=== PATIENT | male | born 1980 | race Caucasian/White ===

== ENCOUNTER 2020-05-24 22:02 | Emergency (ER) | payer SELFPAY ==
[~2020-05-24] VITALS: Ht 175.3 cm; Wt 72.6 kg
[2020-05-24] MEDS ORDERED: NEOMY/BACITR/POLYMYXIN OINT PACKET. TP ONE (22:27)
[2020-05-24] MEDS ORDERED: LIDOCAINE 2% 20 ML VIAL. IJ ONE (22:30)
[2020-05-24] MEDS ORDERED: DIPH,PERTUSS(ACELL),TET VAC/PF 0.5 ML SYRINGE. VAX IM ONE (22:30)
--- NOTE | 2020-05-24 22:42 | PHYS DOC ---
Past History Past Medical History: No Pertinent History Past Surgical History: No Surgical History Smoking: Cigarettes Alcohol Use: Rarely Drug Use: None General Adult EDM: Chief Complaint: FINGER INJURY HPI: HPI: Patient is a 39 year old male who presents for evaluation of a laceration to the back of his right index finger. Patient doing a project at home using a od grinder operator when he cut his finger on the blade. The injury does not involve the nailbed. Patient has normal range of motion and sensation to the affected finger. Patient's tetanus shot is not up-to-date. No other injuries reported. Bleeding controlled prior to arrival Review of Systems: Review of Systems: Constitutional: Denies fever or chills Eyes: Denies change in visual acuity HENT: Denies nasal congestion or sore throat Respiratory: Denies cough or shortness of breath Cardiovascular: Denies chest pain or edema GI: Denies abdominal pain, nausea, vomiting, bloody stools or diarrhea : Denies dysuria Musculoskeletal: Denies back pain or joint pain Integument: Denies rash Neurologic: Denies headache, focal weakness or sensory changes Endocrine: Denies polyuria or polydipsia Lymphatic: Denies swollen glands Psychiatric: Denies depression or anxiety Current Medications: Current Meds: Current Medications Medications (Trade) Dose Ordered Sig/Sherrell Start Time Stop Time Status Last Admin Dose Admin Diphtheria/ Pertussis/Tetanus Vacc (ADACEL TDap SYRINGE) 0.5 ml ONCE ONCE 05/24/20 22:30 05/24/20 22:33 DC 05/24/20 22:32 0.5 ML Lidocaine HCl 5 ml 1X ONCE 05/24/20 22:30 05/24/20 22:33 DC 05/24/20 22:33 5 ML Neomycin/ Polymyxin/ Bacitracin (Triple Antibiotic Ointment) 1 pkt STK-MED ONCE 05/24/20 22:27 05/24/20 22:27 DC Allergies: Allergies: Allergies Coded Allergies Type Severity Reaction Last Updated Verified No Known Drug Allergies 05/24/20 No Physical Exam: PE: Constitutional: Well developed, well nourished, mild acute distress, non-toxic appearance. [] HENT: Normocephalic, atraumatic, bilateral external ears normal, nose normal. [] Eyes: PERRL, EOMI, conjunctiva normal, no discharge. [] Neck: Normal range of motion, no tenderness, supple. [] Cardiovascular:Heart rate regular rhythm, no murmur [] Lungs & Thorax: Bilateral breath sounds clear to auscultation [] Abdomen: Bowel sounds normal, soft, no tenderness, no masses, no pulsatile masses. [] Skin: Warm, dry, no erythema, no rash, 1.5 cm linear laceration middle aspect dorsal side right index finger, laceration does not involve the distal or middle joints, [] Back: No tenderness. [] Extremities: tenderness tp right index finger, no cyanosis, ROM intact. [] Neurologic: Alert and oriented X 3, normal motor function, normal sensory function, no focal deficits noted. [] Psychologic: Affect normal, judgement normal, mood normal. [] Current Patient Data: Vital Signs: Vital Signs Date Time Temp Pulse Resp B/P (MAP) Pulse Ox O2 Delivery O2 Flow Rate FiO2 05/24/20 22:10 98.1 83 20 114/80 (91) 98 Room Air EKG: EKG: [] Radiology/Procedures: Radiology/Procedures: [] Heart Score: Risk Factors: Risk Factors: DM, Current or recent (<one month) smoker, HTN, HLP, family history of CAD, obesity. Risk Scores: Score 0 - 3: 2.5% MACE over next 6 weeks - Discharge Home Score 4 - 6: 20.3% MACE over next 6 weeks - Admit for Clinical Observation Score 7 - 10: 72.7% MACE over next 6 weeks - Early Invasive Strategies Course & Med Decision Making: Course & Med Decision Making Pertinent Labs and Imaging studies reviewed. (See chart for details) [] Dragon Disclaimer: Dragayana Disclaimer: This electronic medical record was generated, in whole or in part, using a voice recognition dictation system. Departure Departure: Impression: Primary Impression: Laceration of right index finger Qualified Codes: S61.210A - Laceration without foreign body of right index finger without damage to nail, initial encounter Disposition: 01 DC HOME SELF CARE/HOMELESS Condition: STABLE Referrals: PCP,RAUL (PCP) ROMY CASAREZ MD Patient Instructions: Laceration Care, Adult Additional Instructions: Keep wound clean and dry, take medication as directed. Call and see your doctor right away in follow-up. Return if infection develops. Take antibiotic as directed, keep wound clean and dry. Wear splint for the next several days to protect finger Scripts Cephalexin (CEPHALEXIN) 250 Mg Capsule 1 CAP PO QID for skin infection for 7 Days, #28 CAP Prov: ESTEFANI PORTILLO DO 05/24/20 Laceration/Wound Repair Laceration/Wound Repair : Wound Location: upper extremity Wound's Depth, Shape: superficial, linear, stellate Wound Length (cm): 2 Wound Explored: clean Irrigated w/ Saline (ccs): 100 Betadine Prep?: Yes Anesthesia: 1% Lidocaine Volume Anesthetic (ccs): 5 Wound Repaired With: sutures Suture Size/Type: 4:0 Number of Sutures: 4 Layer Closure?: No Sterile Dressing Applied?: Yes Splint Applied?: Yes Sling Applied?: No ESTEFANI PORTILLO DO May 24, 2020 22:41
[2020-05-24 22:45] VITALS: BP 125/75
[2020-05-24] MEDS ORDERED: CEPH-281 PO (22:45)
[2020-05-24] MEDS ORDERED: IBUPROFEN 600 MG TABLET. PO ONE (22:45)
[2020-05-24] MEDS ORDERED: BACITRACIN ZINC TOPICAL OINT PACKET. TP ONE (22:45)
[2020-05-24] MEDS ORDERED: CEPHALEXIN 250 MG CAPSULE PO ONE (22:45)
== END 2020-05-24 22:50 | disposition home or self-care (01) ==
LOC: ER 22:02
DX: S61.210A Laceration without foreign body of right index finger without damage to nail, initial encounter (principal); W29.0XXA Contact with powered kitchen appliance, initial encounter; F17.210 Nicotine dependence, cigarettes, uncomplicated; Y93.89 Activity, other specified; Y92.89 Other specified places as the place of occurrence of the external cause; Y99.8 Other external cause status
CPT/HCPCS: 12001; 90471; 90715; 99284; J2001